=== PATIENT | female | born 1995 | race Caucasian/White ===

== ENCOUNTER → 2016-10-19 | Outpatient (CLI) | payer OTHER ==
[~2016-10-19] MED LIST: Breast pump; FERR1TAB23; MTR600X PO; OXYC-57 PO; PRENTAB26 PO
== END | disposition home or self-care (01) ==
LOC: C.LABSPEC 17:52
PROVIDERS: ATTEND Obstetrics & Gynecology
DX: O09.213 Supervision of pregnancy with history of pre-term labor, third trimester (principal)

== ENCOUNTER 2016-11-10 05:35 | Inpatient (IN) | payer OTHER ==
--- NOTE | 2016-11-09 15:37 | PAT Medication Instructions ---
Service Date Nov 09, 2016. Current Home Medication List Multivit/Min/Iron/Fol Ac/Pren ( Vitamin), 1 TAB PO QAM Medication Instructions For Your Scheduled Surgery - Take the following medications the morning of surgery with a sip of water: Multivit/Min/Iron/Fol Ac/Pren ( Vitamin), 1 TAB PO QAM If you have any questions please call us at [phone] (Azul Castro PA-C) or [phone] or [phone]
[2016-11-09 15:54] LABS: BASO % 0.2 %; BASO ABS # 0.02 K/uL (0-0.2); COMPLETE YES; EOS % 0.8 %; HEMATOCRIT 33.9 % (37-47); IG% 0.2 %; LYMPH % 21.9 %; MEAN CELL VOLUME 82.3 fL (80-100); MEAN CORPUSCULAR HEMOGLOBIN 27.7 pg (25-34); MEAN CORPUSCULAR HGB CONC 33.6 g/dl (32-36); MONO % 11.3 %; NEUT % 65.6 %; PLATELET COUNT 230 K/uL (130-400); RED BLOOD COUNT 4.12 M/uL (4.2-5.4)
--- NOTE | 2016-11-09 21:11 | HISTORY & PHYSICAL EXAMINATION ---
DATE OF ADMISSION: 11/10/2016 CHIEF COMPLAINT: Planned section. HISTORY OF PRESENT ILLNESS: A 21-year-old 3, para 1-1-0-2, at 39-4/7 weeks' estimated gestational age today with an EDC of 11/12/2016, who will present tomorrow for planned repeat section. The patient has a history of 2 prior sections. Of note, one of them was delivered at 36 weeks. 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 Today, she denies any symptoms of vaginal bleeding, leaking of fluid, or contractions. She reports good movement. COURSE COMPLICATED BY: 1. Bicornuate uterus. 2. Prior section x2. 3. History of delivery, declined progesterone injections. LABORATORY DATA: B positive blood type, rubella immune, group B strep negative. OBSTETRIC HISTORY: In 2012, 37-week section for breech; in 2013, 36-week section, breech as well. GYNECOLOGIC HISTORY: Cycles every 28-30 days. No history of abnormal Pap smears. Her first Pap smear was with this . No STDs. PAST MEDICAL HISTORY: None. PAST SURGICAL HISTORY: x2. ALLERGIES: None. MEDICATIONS: vitamins. SOCIAL HISTORY: No tobacco, alcohol, or street drug use. FAMILY HISTORY: No congenital anomalies or mental retardation. REVIEW OF SYSTEMS: Ten systems negative and within the chart with the exception of the history as noted above. PHYSICAL EXAMINATION: VITAL SIGNS: Height 5 feet 4 inches, weight 160 pounds. Blood pressure 112/64. Urine negative for protein. HEART: Regular rate and rhythm. LUNGS: Clear to auscultation bilaterally. ABDOMEN: Soft, gravid, nontender. EXTREMITIES: No edema. Fundal height 36 cm, vertex presentation by Regino's maneuvers. heart tones 145 beats per minute. ASSESSMENT: 1. Term intrauterine . 2. Prior section x2, desires repeat section. 3. History of bicornuate uterus. PLAN: The patient will be admitted tomorrow for planned repeat section. A consent form is signed after being reviewed. She is aware of her preop, intraop and postop instructions and course. She is aware of risks, alternatives and complications of the procedure and consequences of not proceeding. She will obtain laboratory tests today and present in the morning for planned delivery. MADDISON
[~2016-11-10] VITALS: Ht 162.6 cm; Wt 72.6 kg
[2016-11-10] VITALS (8 sets, daily range): BP systolic 102–112; BP diastolic 56–76; PULSE 64–80; TEMP 36.6–36.8; O2SAT 97–100; Ht 162.6 cm; Wt 72.6 kg
[~2016-11-10 05:35] MED LIST changes: -Breast pump; +CEFAZOLIN IV 2,000 MG in DEXTROSE 5% 50ML IV SCH; -FERR1TAB23; +LACTATED RINGER'S 1000ML 1,000 ML IV SCH; -MTR600X PO; -OXYC-57 PO
[2016-11-10] MEDS ORDERED: LACTATED RINGER'S 1000ML 1,000 ML IV ONE (05:50)
[2016-11-10] MEDS ORDERED: CITRIC ACID/SODIUM CITRATE 15 ML UDC PO SCH (06:00)
[2016-11-10] MEDS ORDERED: FERR1TAB23 (06:03)
--- NOTE | 2016-11-10 07:28 | History & Physical Bridge Note ---
H&P Re-Evaluation Bridge Note: I have examined the patient, reviewed the History & Physical and in the interval since the performance of the History & Physical I have noted the following changes of clinical significance: No changes noted
[2016-11-10] MEDS ORDERED: FENTANYL CITRATE INJ 50 MCG/1 ML 2 ML VIAL ONE (10:23)
[2016-11-10] MEDS ORDERED: MoRPHine SULFATE PF 1 MG/ML 10 ML AMP/VIAL ONE (10:24)
[2016-11-10] MEDS ORDERED: PHENYLEPHRINE HCL INJ 10 MG/ML VIAL ONE (11:12)
[2016-11-10] MEDS ORDERED: OXYTOCIN INJ 10 UNITS/ML VIAL ONE (11:12)
[2016-11-10] MEDS ORDERED: DIPHTHERIA/TETANUS/PERTUSSIS 0.5 ML SYR/VIAL IM. ONE (11:45)
[2016-11-10] MEDS ORDERED: BENZOCAINE 20% AER SPR 82.5 GM CAN EXT PRN (11:45)
[2016-11-10] MEDS ORDERED: HYDROCORTISONE ACETATE 25 MG SUPP PR PRN (11:45)
[2016-11-10] MEDS ORDERED: SUPERCREAM 0.870 % 15GM JAR EXT PRN (11:45)
[2016-11-10] MEDS ORDERED: LANOLIN OINT EXT PRN ×2 (11:45)
[2016-11-10] MEDS ORDERED: NALOXONE HCL INJ 0.08 MG in SYRINGE 1.8 ML IV PRN (11:46)
[2016-11-10] MEDS ORDERED: NALOXONE HCL INJ 1 MG in SODIUM CHLORIDE 0.9% 1000ML 1,000 ML IV PRN ×4 (11:46)
[2016-11-10] MEDS ORDERED: LACTATED RINGER'S 1000ML 500 ML IV PRN (11:46)
[2016-11-10] MEDS ORDERED: SODIUM CHLORIDE 0.9% 1000ML 1,000 ML IV PRN (11:46)
--- NOTE | 2016-11-10 11:56 | [facility] Post Operative Brief Note ---
Immediate Operative Summary Operative Date Nov 10, 2016. Pre-Operative Diagnosis Intrauterine at 39 5/7 weeks. Prior low transverse section. Patient desires repeat. Post-Operative Diagnosis Same Procedure(s) Performed Repeat low transverse section. Surgeon Dr. Ascencio Printed Circuit Board Assembler Surgeon(s) Jennifer Maldonado and Dr. Holt Estimated Blood Loss 500 Findings Delivered a viable male , APGARS 9,9. Weight 7pounds 0 ounces. Bicornuate uterus, normal fallopian tubes and ovaries bilaterally. Fluids (cc crystalloids) 1300 Specimens A. Placenta - hold B. Cord blood Drains madrigal to straight drainage, clear urine at end of case Anesthesia Spinal with duramorph Complication(s) None
[2016-11-10] MEDS ORDERED: NALOXONE HCL 0.4 MG/1 ML VIAL/CARP IV PRN (12:00)
[2016-11-10] MEDS ORDERED: MoRPHine SULFATE PF 1 MG/ML 10 ML AMP/VIAL EPI PRN (12:00)
[2016-11-10] MEDS ORDERED: PROMETHAZINE HCL INJ 25 MG in SODIUM CHLORIDE 0.9% 50ML 50 ML IV PRN (12:00)
[2016-11-10] MEDS ORDERED: NO NARCOTICS OR SEDATIVES SCH (12:00)
[2016-11-10] MEDS ORDERED: ONDANSETRON INJ 2 MG/ML 2 ML VIAL IV PRN (12:00)
[2016-11-10] MEDS ORDERED: NALBUPHINE HCL INJ 10 MG/ML AMP IV PRN (12:00)
[2016-11-10] MEDS ORDERED: KETOROLAC TROMETHAMINE 30 MG/ML VIAL IV. PRN (12:00)
[2016-11-10] MEDS ORDERED: DiphenhydrAMINE HCL 50 MG/ML VIAL IV PRN (12:00)
[2016-11-10] MEDS ORDERED: EpHEDrine SULFATE INJ 50 MG/ML AMP IV PRN (12:00)
--- NOTE | 2016-11-10 12:08 | OPERATIVE REPORT ---
DATE OF OPERATION: 11/10/2016 PREOPERATIVE DIAGNOSES: 1. 39-week intrauterine . 2. Prior section x2. 3. Desires repeat section. POSTOPERATIVE DIAGNOSES: Same. PROCEDURE: Repeat low transverse section. SURGEON: Dr. Laila Ascencio. UTILITY PORTER: RN. IV FLUIDS: 1200 mL ESTIMATED BLOOD LOSS: 500 mL ANESTHESIA: Spinal with Duramorph. FINDINGS: Viable male infant, Apgars 9 and 9, weight 7 pounds. Uterus bicornuate with developed right horn and undeveloped left horn. Normal ovaries and fallopian tubes bilaterally. INDICATIONS: A 21-year-old 3, para 2-0-0-2, at 39+ weeks estimated gestational age, for planned repeat section with a history of prior section x2. The patient was counseled about her treatment options and desired to proceed with . A consent form was signed. PROCEDURE IN DETAIL: The patient was taken to the operating room and identified. After adequate spinal anesthesia was obtained, she was placed in the supine position with a leftward tilt and prepped and draped in the usual sterile fashion. A Pittman catheter had already been placed. A knife was used to create a Pfannenstiel skin incision that was carried down to the underlying layer of fascia. The fascia was nicked in the midline and this opening was extended laterally using Srinivasan scissors. Rigo clamps were placed in the superior and inferior aspects of the fascial incision, tenting it upwards, and the underlying rectus muscles were dissected off the overlying fascia both sharply and bluntly using Srinivasan scissors. The rectus muscles were bluntly in the midline using a hemostat. The peritoneal lining was elevated and opened up into sharply using Metzenbaum scissors. This opening was extended superiorly and inferiorly with direct visualization of the bladder. The opening was then stretched. The bladder blade was placed. The vesicouterine peritoneum was elevated and opened up into sharply. It was extended laterally and a bladder flap was created digitally. The bladder blade was replaced. The knife was used to create a hysterotomy that was then stretched. The amniotic sac was ruptured for clear urine. At the hysterotomy, the hand was noted. It was gently pushed back into the uterus. The delivery then occurred of the buttocks to the level of the scapula. The arms were swept across the anterior midline. The head was flexed and delivered. The nose and mouth were bulb suctioned. The cord was clamped and cut, and the was handed off to the awaiting bleacher lard. Cord blood was obtained. The placenta was manually expressed. The uterus was exteriorized and cleared off all clots and debris. The anatomy was inspected with the findings as noted above. The hysterotomy was closed in a running interlocking fashion using 0 Vicryl, followed by a second imbricating layer of 0 Vicryl for excellent hemostasis. The pelvis was irrigated. The uterus was returned to the abdomen. The gutters were cleared off all clots and debris. The fascia was closed in a running fashion using 0 Vicryl. The subcutaneous tissue was irrigated and the skin was then closed in a subcuticular fashion using 4-0 Vicryl. All sponge, lap and needle counts were correct x2. The patient was taken to the recovery room in stable condition. I attest to the content of the Intraoperative Record and any orders documented therein. Any exceptions are noted below. MADDISON
[2016-11-10] MEDS: OXYTOCIN INJ 20 UNITS in LACTATED RINGER'S 1000ML 1,000 ML IV SCH ×2 (12:32→20:27)
--- NOTE | 2016-11-10 19:14 | Anesthesiology Progress Note ---
Anesthesia Post Op Note Date & Time Nov 10, 2016 at 19:15 Vital Signs Pain Intensity: 7.0 Vital Signs Past 12 Hours Date Time Temp Pulse Resp B/P Pulse Ox O2 Delivery O2 Flow Rate FiO2 11/10/16 17:50 20 100 11/10/16 16:50 16 98 11/10/16 15:50 14 97 Notes Mental Status: alert / awake / arousable, participated in evaluation Pt Amnestic to Procedure: No Nausea / Vomiting: adequately controlled Pain: adequately controlled Airway Patency, RR, SpO2: stable & adequate BP & HR: stable & adequate Hydration State: stable & adequate Neuraxial Anesthesia: was administered, sensory block is resolving, sensory block resolved Anesthetic Complications: no major complications apparent
[2016-11-10] MEDS: DOCUSATE SODIUM 100 MG CAP PO SCH (20:27)
[2016-11-11] VITALS (7 sets, daily range): BP systolic 101–110; BP diastolic 55–64; PULSE 72–90; TEMP 36.7–37; O2SAT 96–100
[2016-11-11] MEDS ORDERED: KETOROLAC TROMETHAMINE 30 MG/ML VIAL IV. PRN (06:00)
[2016-11-11] MEDS ORDERED: ONDANSETRON INJ 2 MG/ML 2 ML VIAL IV PRN (06:00)
[2016-11-11] MEDS ORDERED: DC INTRASPINAL MORPHINE ONE (06:00)
[2016-11-11] MEDS ORDERED: OXYCODONE/ACETAMINOPHEN 5-325 TAB PO PRN ×2 (06:00)
[2016-11-11] MEDS ORDERED: DiphenhydrAMINE HCL 50 MG/ML VIAL IV PRN (06:00)
[2016-11-11 08:26] LABS: BASO % 0.1 %; BASO ABS # 0.01 K/uL (0-0.2); COMPLETE YES; EOS % 0.4 %; HEMATOCRIT 30.6 % (37-47); IG% 0.3 %; LYMPH % 17.8 %; LYMPH ABS # 2.18 K/uL (1.2-3.4); MEAN CELL VOLUME 81.6 fL (80-100); MEAN CORPUSCULAR HEMOGLOBIN 27.7 pg (25-34); MONO % 9.4 %; PLATELET COUNT 191 K/uL (130-400); RED BLOOD COUNT 3.75 M/uL (4.2-5.4); WHITE BLOOD COUNT 12.27 K/uL (4.8-10.8)
[2016-11-11] MEDS: DOCUSATE SODIUM 100 MG CAP PO SCH ×2 (08:33→20:29)
[2016-11-11] MEDS: PRENATAL VITAMIN TAB PO SCH (08:33)
--- NOTE | 2016-11-11 08:42 | Progress Note ---
Subjective Nov 11, 2016. Subjective conversation w/ patient, physical exam Ambulation: ambulating normally Voiding: no voiding problems Passing Gas: Yes Diet Tolerance: Regular Diet Lochia: Small Feeding Type: Breast Feeding Review of Systems Constitutional: No chills, No fever Respiratory: No cough, No shortness of breath Cardiac: + chest pain (upper right chest) Abdomen: No nausea, No pain, No vomiting Objective Vital Signs Date Time Temp Pulse Resp B/P Pulse Ox O2 Delivery O2 Flow Rate FiO2 11/11/16 04:00 16 98 11/11/16 04:00 37.0 80 18 101/55 99 Room Air 11/11/16 02:00 18 98 11/11/16 01:00 16 98 11/11/16 00:01 18 99 11/10/16 23:00 36.6 80 16 112/76 98 Room Air 11/10/16 23:00 18 99 11/10/16 23:00 99 Room Air 11/10/16 22:00 18 98 11/10/16 21:00 20 99 11/10/16 20:00 18 99 11/10/16 20:00 36.7 74 18 102/56 99 Room Air 11/10/16 18:50 16 98 11/10/16 17:50 20 100 11/10/16 16:50 16 98 11/10/16 15:50 36.8 64 14 107/61 97 Room Air 11/10/16 15:50 97 Room Air 11/10/16 15:50 14 97 Physical Exam General Appearance: WELL-APPEARING, NO APPARENT DISTRESS, other (dressing around lower abdominal wound, no surrounding erythema or discharge) Respiratory/Chest: lungs clear, normal breath sounds Cardiovascular: regular rate, rhythm, no murmur Abdomen: normal bowel sounds, non tender, soft Fundus: Firm, Non-Tender, Relation to Umbilicus (1 cm above) Extremities: non-tender, no calf tenderness Laboratory Results Last 24 Hours Test 11/11/16 07:10 White Blood Count 12.27 K/uL Red Blood Count 3.75 M/uL Hemoglobin 10.4 g/dL Hematocrit 30.6 % Mean Corpuscular Volume 81.6 fL Mean Corpuscular Hemoglobin 27.7 pg Mean Corpuscular Hemoglobin Concent 34.0 g/dl Platelet Count 191 K/uL Mean Platelet Volume 10.0 fL Neutrophils (%) (Auto) 72.0 % Lymphocytes (%) (Auto) 17.8 % Monocytes (%) (Auto) 9.4 % Eosinophils (%) (Auto) 0.4 % Basophils (%) (Auto) 0.1 % Neutrophils # (Auto) 8.84 K/uL Lymphocytes # (Auto) 2.18 K/uL Monocytes # (Auto) 1.15 K/uL Eosinophils # (Auto) 0.05 K/uL Basophils # (Auto) 0.01 K/uL RDW Standard Deviation 39.1 fL RDW Coefficient of Variation 13.2 % Immature Granulocyte % (Auto) 0.3 % Immature Granulocyte # (Auto) 0.04 K/uL Assessment and Plan Post-Op Day#: 1 Continue Routine Care: s/p Day 1 - vital signs reviewed and wnl - Hgb reviewed and 10.4 - Blood type: B+, GBS-. Rubella immune - Pt doing well clinically - Encourage ambulation, monitor and control pain with motrin prn, resume regular diet, monitor lochia - Encourage breast feeding - Chest pain is rated as 4/10 and patient said it is getting much better, she is saturating 99 on room air and she is able to ambulate without any difficulty. will continue to monitor for improvement - CONTINUE ROUTINE POST CARE Resident Physician Supervision Note: I was present with Dr. Holt during the history and exam. I discussed the case with the resident and agree with the findings and plan as documented in the note. Any exceptions or clarifications are listed here: POD#1, feeling well. Ambulating. Pittman out. Urinating well. Continue routine care. Documented By: Anabelle Husain
[2016-11-11] MEDS: IBUPROFEN 600 MG TAB PO PRN ×2 (15:28→21:16)
[2016-11-12 00:45] VITALS: BP 102/69; PULSE 70; TEMP 36.5; O2SAT 97
[2016-11-12] MEDS ORDERED: MTR600X PO (02:35)
[2016-11-12] MEDS ORDERED: OXYC-57 PO (02:35)
--- NOTE | 2016-11-12 02:38 | Discharge Instructions ---
Discharge Instructions Admission Reason for Admission: Previous Caesarean Discharge Discharge Diagnosis / Problem: status post delivery Discharge Goals Goal(s): Routine recovery after delivery, Routine recovery after Medications Continue Dispensed Medications: supercream, dermaplast, tucks, lansinoh Activity Recommendations Activity Limitations: as noted below . Instructions / Follow-Up Instructions / Follow-Up ACTIVITY RECOMMENDATIONS: * Gradual return to full activity over the next 2-3 weeks. * No lifting - nothing heavier than baby over the next 2-3 weeks. * Do not engage in vigorous exercise, sexual activity or sports until cleared by your physician. * Do not drive or operate any motorized equipment until cleared by your physician. * You may shower/bathe daily. MEDICATIONS: For discomfort or pain, you may use Acetaminophen (Tylenol), Ibuprofen (Advil), or Naproxen (Aleve) following the package directions. For constipation you may use Colace following the package directions. BREAST CARE: If you are not breast feeding: * Wear a supportive bra 24 hours a day for one to two weeks. * Avoid stimulating your breasts and nipples as much as possible during the first few weeks after delivery. * When taking a shower, have the warm water hit your back, not breasts. * When your breasts feel full, apply ice packs. Usually three to four times a day helps ease the discomfort. * Take a mild pain medication (Tylenol / Motrin) when you are uncomfortable. If breast feeding: * Use breast milk to lubricate nipples. Lansinoh cream may be used for sore nipples. You do not need to remove cream prior to breast feeding. If using a different brand of cream, check the label for directions regarding removal of cream prior to nursing. * Wear a supportive bra. * If having problems with breasts or breast feeding, call a project management consultant or your health care provider. SPECIAL CARE INSTRUCTIONS: When you are discharged from the hospital, it is important for you to follow the instructions listed below: * During the first week at home, you should be able to care for yourself and your baby. In addition, the usual light household activities are encouraged. * Limit your activities to the way you feel. Do not try to clean the house or move furniture. Be sensible. * If you actively engage in sports and have done so up until the time of your delivery, you may resume these activities as soon as you feel able. This may take up to one month or even longer. Use good judgment. * Continue to take your vitamins for at least six weeks after the of your baby. * Your diet need not be limited unless you were on a special diet before your delivery. Breast-feeding mothers need around 2500 calories per day and at least 64-80 ounces of fluid per day (8 to 10 glasses). * You should eat foods from the four major food groups. Crash diets or fad diets are to be avoided. Eating lean meats, fresh fruits and vegetables, low-fat dairy products, high fiber foods and a regular exercise program, will help you get back to your pre- weight without putting your health at risk. * Constipation is sometimes a problem after delivery. Take a mild laxative as needed. If breast feeding, Milk of Magnesia is acceptable to use. You may use a suppository or Fleets enema. * A daily shower or tub bath is suggested. Wash incision daily with warm soapy water and pat dry. It doesn't need to be covered unless drainage is present. * A bloody vaginal discharge will usually continue until around four weeks . A small amount of bleeding may continue for as long as six weeks. Vaginal discharge changes from the bright red bleeding after delivery to pink then brownish and finally yellowish-pink before becoming white and disappearing. * Bleeding may increase with activity. Your first period may come in 4-8 weeks. If you are breast feeding, your period may be delayed even longer. * [place] (sex) can begin whenever both you and your partner feel comfortable and do not have any form of genital infection. It is recommended that you wait at least six weeks for internal and external healing to occur. If you have questions, please talk to your health care practitioner. A condom should be used to prevent infection and . * Foreplay, gentle intercourse and lubrication is very important the first several times to prevent pain. A water-based lubricant such as K-Y jelly or Astroglide may be used. * If you have RH negative blood and your baby is RH positive, you will receive RHOGAM by injection prior to discharge. The nurse will give you a card to keep with you that has the date and place that you received RHOGAM after delivery. * During your care, you had a Rubella screen done to check for the presence of rubella antibodies in your blood. If your test was negative, you will receive a Rubella vaccine prior to discharge. This vaccine may cause a fever, soreness at the injection site and flu-like symptoms. If these symptoms persist, notify your health care practitioner. is not advised for one month after a Rubella vaccine. * Verbalizes understanding of car seat law as reviewed with patient nursing. * Car Seat hand-out given and reviewed with patient by nursing. * Shaken baby information reviewed with patient by nursing. Call you doctor if: * Heavy bleeding (saturating several pads an hour) or passing clots the size of your fist. * A fever >101 degrees F (38.3 degrees C) on two occasions four hours apart and /or chills. * Unusual pain in the pelvic or vaginal areas. * Call the doctor for any increased redness, drainage or swelling around the incision and any pain unrelieved by prescribed pain medication. * "Baby Blues" lasting longer than two weeks. If you have any questions or concerns, call your health care practitioner at . FOLLOW UP VISIT: * Please call the office at to schedule a 6 week examination. It is important you keep this appointment. It is important for you to make arrangements for either yearly or twice yearly check-ups thereafter. Current Hospital Diet Patient's current hospital diet: Regular OB Diet Discharge Diet Recommended Diet: Regular Diet Procedures Procedures Performed: Repeat low transverse section. Pending Studies Studies pending at discharge: no Medical Emergencies . Who to Call and When: Medical Emergencies: If at any time you feel your situation is an emergency, please call [phone] immediately. . Non-Emergent Contact Non-Emergency issues call your: Blanket Cutting Machine Operator Call Non-Emergent contact if: you have a fever, your pain is not controlled, wound has increased drainage, wound has increased redness, wound has increased pain . . "Provider Documentation" section prepared by Laila Ascencio. VTE Core Measure Inpt VTE Proph given/why not?: Treatment not indicated [place] Drug Monitoring Program Search Results: no issues identified
[2016-11-12 07:26] LABS: HEMATOCRIT 29.7 % (37-47)
[2016-11-12 07:56] VITALS: BP 107/73; PULSE 76; TEMP 36.7
[2016-11-12] MEDS: DOCUSATE SODIUM 100 MG CAP PO SCH (08:21)
[2016-11-12] MEDS: PRENATAL VITAMIN TAB PO SCH (08:21)
--- NOTE | 2016-11-12 09:45 | Progress Note ---
Subjective Nov 12, 2016. Subjective conversation w/ patient, physical exam Ambulation: ambulating normally Voiding: no voiding problems Passing Gas: Yes Diet Tolerance: Regular Diet Lochia: Small Feeding Type: Breast Feeding Pain: no issues Objective Vital Signs Date Time Temp Pulse Resp B/P Pulse Ox O2 Delivery O2 Flow Rate FiO2 11/12/16 07:56 36.7 76 20 107/73 11/12/16 00:45 36.5 70 18 102/69 97 Room Air 11/12/16 00:45 Room Air 11/11/16 16:40 36.9 90 18 110/64 96 Room Air 11/11/16 16:40 96 Room Air 11/11/16 11:53 36.7 80 16 101/59 Room Air Physical Exam General Appearance: WELL-APPEARING, WD/WN, NO APPARENT DISTRESS Respiratory/Chest: lungs clear Cardiovascular: regular rate, rhythm Abdomen: non tender, soft Fundus: Firm, Relation to Umbilicus ( 2 down) Incision Description: Clean, Dry & Intact Extremities: non-tender Laboratory Results Last 24 Hours Test 11/12/16 06:59 Hemoglobin 10.0 g/dL Hematocrit 29.7 % Assessment and Plan Post-Op Day#: 2 Continue Routine Care: stable, desires d/c home, h/h noted. instructions reviewed. f/u 6wks pp care.
[2016-11-12 10:30] VITALS: BP_DIAS 73; PULSE 76; TEMP 36.7
--- NOTE | 2016-11-13 11:30 | DISCHARGE SUMMARY ---
ADMISSION DIAGNOSES: 1. Term intrauterine . 2. Prior section, desires repeat section. 3. Breech presentation. DISCHARGE DIAGNOSES: Same. PROCEDURE: Repeat low transverse section. BRIEF HISTORY AND HOSPITAL COURSE: A 21-year-old 3, para 2-0-0-2, at 39 weeks estimated gestational age for planned repeat section with a history of prior section x2. The patient has a known bicornuate uterus. The baby is in breech presentation at the time of delivery. The procedure was uncomplicated as noted above. The estimated blood loss was 500 mL. The patient's postop recovery and course was uncomplicated and she was stable for discharge to home on postop day #2. She was tolerating a regular diet, voiding spontaneously without difficulty, ambulating without difficulty and her pain was controlled with oral pain medicines. Her postop hemoglobin was 10. She was given appropriate discharge instructions and pain medication prescriptions. She was instructed to follow up in 6 weeks' time.
== END 2016-11-12 12:35 | disposition home or self-care (01) | DRG 766 ==
LOC: C.LD 05:35 → EDSTATUS 11:02 → C.OBG 11-11 15:38
PROVIDERS: ADMIT Obstetrics & Gynecology; ATTEND Obstetrics & Gynecology
PROC: 10D00Z1 Extraction of Products of Conception, Low, Open Approach (ICD-10-PCS; principal; 2016-11-10 07:30)
DX: O34.211 Maternal care for low transverse scar from previous cesarean delivery (principal); O99.02 Anemia complicating childbirth; O90.89 Other complications of the puerperium, not elsewhere classified; R07.9 Chest pain, unspecified; O32.1XX0 Maternal care for breech presentation, not applicable or unspecified; O34.03 Maternal care for unspecified congenital malformation of uterus, third trimester; Q51.3 Bicornate uterus; D64.9 Anemia, unspecified; Z37.0 Single live birth; Z3A.39 39 weeks gestation of pregnancy; Z23 Encounter for immunization